=== PATIENT | male | born 1940 | race Caucasian/White ===

== ENCOUNTER 2020-03-01 06:38 | Observation (INO) | payer MEDICARE, BC ==
[~2020-03-01] VITALS: Ht 175.3 cm; Wt 112.3 kg
[2020-03-01] MEDS: SODIUM CHLORIDE 0.9% 1,000 ML IV SCH ×3 (07:01→23:01)
[2020-03-01] MEDS ORDERED: METF500T27 PO (07:11)
[2020-03-01] MEDS ORDERED: ROSU40TA PO (07:11)
[2020-03-01] MEDS ORDERED: CLOP75TA52 PO (07:11)
[2020-03-01] MEDS ORDERED: MULT1TAB57 PO (07:11)
[2020-03-01] MEDS ORDERED: CHOL10003 PO (07:11)
[2020-03-01] MEDS ORDERED: ASPI81TA45 PO (07:11)
[2020-03-01] MEDS ORDERED: VITA1TAB67 PO (07:11)
[2020-03-01 07:21] VITALS: BP 152/82
[2020-03-01] MEDS ORDERED: FENTANYL PF 100 MCG/2ML ONE (07:58)
[2020-03-01] MEDS ORDERED: CEFAZOLIN PMX 1GM/50ML 50 ML ONE (07:58)
[2020-03-01] MEDS ORDERED: CEFAZOLIN 1,000 MG ONE (07:58)
[2020-03-01] MEDS ORDERED: MIDAZOLAM 1 MG/ML, 5ML ONE (07:58)
[2020-03-01] MEDS ORDERED: LIDOCAINE 2%, 20ML ONE (07:58)
[2020-03-01] MEDS ORDERED: ACETAMINOPHEN 325 MG TABLET PO PRN (09:30)
[2020-03-01] MEDS ORDERED: HOLD MEDICATION MC PRN (09:30)
[2020-03-01] MEDS: CEFAZOLIN PMX 1GM/50ML 50 ML IVPB SCH (16:36)
[2020-03-01 19:15] VITALS: BP 142/86
[2020-03-01] MEDS ORDERED: metFORMIN XR 500 MG TAB.ER.24H PO SCH (21:00)
[2020-03-01] MEDS ORDERED: TEMPLATE NON-FORMULARY MED. (Rosuvastatin Calcium** (Crestor**) 40 MG) PO SCH (21:00)
[2020-03-01] MEDS: SODIUM CHLORIDE FLUSH 10ML SYR IVF SCH (21:21)
[2020-03-02] MEDS: CEFAZOLIN PMX 1GM/50ML 50 ML IVPB SCH (00:34)
[2020-03-02 02:29] VITALS: BP 146/87
[2020-03-02] MEDS: SODIUM CHLORIDE 0.9% 1,000 ML IV SCH (07:01)
[2020-03-02] MEDS: SODIUM CHLORIDE FLUSH 10ML SYR IVF SCH (07:56)
[2020-03-02 08:40] VITALS: BP 137/74
[2020-03-02] MEDS ORDERED: ACET325T26 PO (08:40)
[2020-03-02] MEDS ORDERED: CLOPIDOGREL 75 MG TABLET PO SCH (09:00)
[2020-03-02] MEDS ORDERED: CHOLECALCIFEROL 5,000u TAB PO SCH (09:00)
[2020-03-02] MEDS ORDERED: ASPIRIN 81 MG TABLET EC PO SCH (09:00)
[2020-03-02] MEDS ORDERED: MULTIVITS,STRESS FORMULA 1 TABLET PO SCH (09:00)
[2020-03-02] MEDS ORDERED: MULTIVITAMIN 1 TABLET PO SCH (09:00)
== END 2020-03-02 10:50 | disposition home or self-care (01) ==
LOC: CACL 06:38 → 5SO 09:14 → DCLOUNGE 03-02 10:26
PROVIDERS: ADMIT Internal Medicine Cardiovascular Disease; ATTEND Internal Medicine Cardiovascular Disease
DX: I49.5 Sick sinus syndrome (principal); I25.119 Atherosclerotic heart disease of native coronary artery with unspecified angina pectoris; R00.1 Bradycardia, unspecified; Z79.82 Long term (current) use of aspirin; Z79.899 Other long term (current) drug therapy
CPT/HCPCS: 33208; 71045; 96365; 96366; 99156; C1779; C1785; C1892; G0378; J0690; J2250; J3010; J3490

== ENCOUNTER → 2021-03-09 | Outpatient (CLI) | payer MEDICARE, BC ==
[~2021-03-09] MED LIST: ACET325T26 PO; ASPI81TA45 PO; CHOL10003 PO; CLOP75TA52 PO; METF500T27 PO; MULT1TAB58 PO; REGADENOSON 0.4 MG/5 ML SYRINGE ONE; ROSU40TA PO; VITA1TAB67 PO
== END | disposition home or self-care (01) ==
LOC: CFH 08:13
PROVIDERS: ATTEND Internal Medicine Cardiovascular Disease
DX: I25.119 Atherosclerotic heart disease of native coronary artery with unspecified angina pectoris (principal); Z98.61 Coronary angioplasty status
CPT/HCPCS: 78452; 93017; A9502; J2785